=== PATIENT | male | born 1935 | race Caucasian/White ===

== ENCOUNTER 2017-01-29 11:01 | Observation (INO) | payer MEDICARE, OTHER ==
--- NOTE | ~2017-01-29 | OP ---
Record Of Operation [facility] [address] [place]. [address] NAME: GEOFFREY TORRES : 34 STATUS : ADM IN PAT#: [id number] AGE: 81 ADM/REG DATE : 01/29/17 MR#: [id number] REPORT SERV DATE: 01/29/17 DICTATED BY: JUDI OS DATE: 01/29/17 REPORT STATUS : Draft TRANSCRIBED BY: MODL DATE: 01/29/17 DATE OF PROCEDURE: 01/29/2017 ATTENDING DOCTOR: Judi So M.D. PROCEDURE: Cystourethroscopy and placement of artificial urinary sphincter. PREOPERATIVE DIAGNOSIS: Urinary incontinence. POSTOPERATIVE DIAGNOSIS: Urinary incontinence. INDICATIONS: Mr. Torres is an 81-year-old male with history of prostate cancer. He had a remote history of prostatectomy. He has had a PSA recurrence. He had a rising PSA on androgen deprivation therapy. He also has urinary incontinence. He elected for an artificial urinary sphincter. ANESTHESIA: General. COMPLICATIONS: None. IMPLANTS: Artificial urinary sphincter with 4.5 cm cuff. SPECIMENS: None. NARRATIVE: The patient was brought to the operating room, identified by his wristband. General anesthesia was induced, and vancomycin and gentamicin were given for preoperative antibiotics. The patient was then shaved. A 10 minute prep with soap was performed. A chlorhexidine prep was then performed. The patient was then draped in sterile fashion. A 20-Sami Parada was placed into his urethra into his bladder. The balloon was inflated to 10 mL of sterile water. A midline perineal incision was made, this was deepened through dartos fascia to expose the bulbous spongiosis muscle. A Childs retractor was placed. The bulbous spongiosis muscle was divided in its midline, it was in the urethra. A right angle was used to get around the urethra at the junction of the splitting of the corporal bodies. An appropriate sized passage was made behind the urethra, there was no urethral damage. Umbilical tape was used to measure the urethra, the urethra circumference was 5 cm. A 4.5 cm cuff was then chosen. This was placed in position. Next, a 3 cm incision was made approximately 3 fingerbreadths above the pubic symphysis on the right side of the body, this was deepened with electrocautery through Zabrina's fascia down to the level of the rectus fascia. The rectus fascia was incised, the muscle was split. The space of Retzius was entered. A reservoir was placed down into the space of Retzius and the reservoir was inflated with 23 mL of fluid. The fascia was closed with a running 0 Vicryl suture with care taken not to damage the reservoir. Next, the tubing was tunneled from the cuff up into the inguinal incision using the provided guide. Next, a standard pump was placed in a subdartos position on the right side of the scrotum, it was placed in the dependent portion of the scrotum. Next, the tubing was trimmed to appropriate levels. The cuff was attached to the pump using a right angle connector and the pump was connected to the reservoir using Record Of Operation [facility] [address] [place]. [address] NAME: GEOFFREY TORRES : 34 STATUS : ADM IN [facility]#: [id number] AGE: 81 ADM/REG DATE : 01/29/17 MR#: [id number] REPORT SERV DATE: 01/29/17 DICTATED BY: JUDI SO DATE: 01/29/17 REPORT STATUS : Draft TRANSCRIBED BY: JAVIER DATE: 01/29/17 a straight connector. All connections were made after irrigating the tubing to the appropriate fashion. The wounds were irrigated clear with antibiotic impregnated solution. The inguinal incision was closed with a 3-0 Vicryl suture in an interrupted fashion. Skin was closed with 4-0 Monocryl suture. A Dermabond dressing was placed in the perineum. The bulbous spongiosis muscle was closed with a 3-0 Vicryl suture. The dartos fascia was closed with a 3-0 running Vicryl suture. The skin was closed with a running 4-0 Monocryl suture. A Xeroform gauze and a Tegaderm dressing was placed. Cystoscopy was performed. The urethra was uninjured. The urethra coapted well with activation of the sphincter. The bladder was filled. The cuff was activated. There was no urinary leakage. The cuff was deactivated and pressure on the abdomen resulted in spontaneous urination. The cuff was then locked in a deactivated state. A 14-Sami Parada catheter was placed into the bladder. The patient was awoken from anesthesia and transferred to the recovery room in stable condition. There were no complications. JOMEGA/JANAEL Judi So MD / [id number] CC: MD Wilber Izquierdo DO
--- NOTE | ~2017-01-29 | CN ---
Consultation Report [facility] [address] [place]. [address] NAME: GEOFFREY KELLER : 33 STATUS : ADM IN [facility]#: [id number] AGE: 81 ADM/REG DATE : 01/29/17 MR#: [id number] REPORT SERV DATE: 01/30/17 DICTATED BY: DIGNA ARAYA DATE: 01/30/17 REPORT STATUS : Draft TRANSCRIBED BY: MODL DATE: 01/30/17 INFECTIOUS DISEASE CONSULT DATE OF CONSULTATION: REASON FOR REFERRAL: Evaluation and treatment of possible C. diff in the past. HISTORY OF PRESENT ILLNESS: The patient is an 81-year-old male. He has a history of atrial fibrillation. He is on chronic anticoagulation with Eliquis. He was diagnosed many years ago with prostate cancer and had a prostatectomy. Recently, he has had a rise in his PSA and also development of urinary incontinence. He was admitted yesterday by Dr. So of Urology for construction of an artificial urinary sphincter. He received perioperative Ancef x2 doses. 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 The last episode of C. diff was 2 years ago and he has been on no antibiotics since then. He has had no diarrhea recently. He currently feels well. PAST MEDICAL HISTORY: Otherwise unremarkable. MEDICATIONS: As mentioned above, Ancef. ALLERGIES: HE HAS NO KNOWN ANTIMICROBIAL ALLERGIES. 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 He lived for many years in the [place], moved here 5 months ago to be close to his son. He smoked many years ago but not recently. No history of alcohol or substance abuse. FAMILY HISTORY: Noncontributory. PHYSICAL EXAMINATION: GENERAL: Well-appearing, elderly, male, in no acute distress. He is alert and oriented x3. VITAL SIGNS: His temperature is 97.8 at present, pulse 62, respirations 16, blood pressure 101/52, weight 81 kg. HEENT: Sclerae clear. No oral lesions. NECK: Supple. LUNGS: Clear. HEART: Irregular. ABDOMEN: Soft, nontender. Positive bowel sounds. EXTREMITIES: Without clubbing, cyanosis, or edema. LABORATORY DATA: White blood cell count 5.9, hematocrit 31, platelets 165. BUN and creatinine are 17 and 0.94. Consultation Report [facility] [address] [address] NAME: GEOFFREY KELLER : 34 STATUS : ADM IN PAT#: [id number] AGE: 81 ADM/REG DATE : 01/29/17 MR#: [id number] REPORT SERV DATE: 01/30/17 DICTATED BY: DIGNA ARAYA DATE: 01/30/17 REPORT STATUS : Draft TRANSCRIBED BY: JAVIER DATE: 01/30/17 IMPRESSION: History of Clostridium difficile colitis but long enough that he should not be colonized at present and I do not think he is at risk for it now. RECOMMENDATIONS: 1. No Clostridium difficile treatment recommended at this time. 2. Reasonable to take probiotics for the next two weeks. He will obtain those at his pharmacy. 3. If he develops any sort of diarrhea or questionable abdominal symptoms, I have given him my card and he will call me immediately and we will follow him at that time. I appreciate very much your consulting on this patient. HOLLAND Digna Araya M.D. / [id number] CC: MD Wilber Izquierdo DO
[~2017-01-29 11:01] MED LIST: ASAB PO; CLARIT10 PO; ELIQUIS 5 MG TAB5 MG PO; FISH-EPA1000 MG PO; FLECAINIDE50 MG PO; FLONASE NAS; LOFIBRA134 MG PO; LUPRON DEPOT3.75 MG; LUPRON DEPOT7.5 MG IM; MULTIVIT/MIN PO; SINGULAIR1 PO; ZOCOR20 PO; [UNRECOGNIZED DRUG - REMARK]
[2017-01-30 05:33] LABS: BASOPHILS 0.2 %; BASOPHILS ABSOLUTE 0.01 10/3/uL (0.0-0.16); EOSINOPHILS 0 %; HEMOGLOBIN 10.9 g/dL (13.6-17.8); IMMATURE GRANULOCYTES 0.2 %; IMMATURE GRANULOCYTES ABSOLUTE 0.01 10/3/uL (0.0-0.11); LYMPHOCYTES 13.2 %; LYMPHOCYTES ABSOLUTE 0.77 10/3/uL (0.67-4.30); MANUAL DIFF NO %; MEAN CORPUS HGB CONC 35.2 g/dL (32.0-36.0); MEAN CORPUSCULAR HEMOGLOB 33.3 pg (26.0-34.0); MEAN CORPUSCULAR VOLUME 94.8 fL (80-100); MEAN PLATELET VOLUME 9.7 fL (9.2-13.0); MONOCYTES 11.1 %; MONOCYTES ABSOLUTE 0.65 10/3/uL (0.21-1.20); NEUTROPHILS 75.3 %; NEUTROPHILS ABSOLUTE 4.41 10/3/uL (2.02-8.40); PLATELET COUNT 165 10/3/uL (150-400); RBC DISTRIBUTION WIDTH 13.2 % (12.0-16.0); RED CELL COUNT 3.27 10/6/uL (4.7-6.1); WHITE BLOOD CELLS 5.9 10/3/uL (4.5-10.5)
[2017-01-30 05:47] LABS: BUN (BLOOD UREA NITROGEN) 17 MG/DL (6-23); CALCIUM, SERUM 8.3 MG/DL (8.5-10.4); CHLORIDE, SERUM 105 MMOL/L (96-112); CO2 (CARBON DIOXIDE) 27 MMOL/L (24-34); CREATININE 0.94 MG/DL (0.70-1.30); GFR AFRICAN AMERICAN 87 ML/MIN (>=60); GFR NON AFRICAN AMERICAN 75 ML/MIN (>=60); SODIUM, SERUM 141 MMOL/L (135-148)
[2017-01-30 05:57] LABS: GLUCOSE, SERUM 130 MG/DL (60-99)
[2017-01-30] MEDS ORDERED: DSS PO (11:46)
[2017-01-30] MEDS ORDERED: K500 PO (11:47)
[2017-01-30] MEDS ORDERED: PCET PO (11:47)
[2017-03-17] MEDS ORDERED: JANTOVEN5 MG (14:44)
[2017-03-17] MEDS ORDERED: ZOCOR40 PO (14:57)
[2017-03-17] MEDS ORDERED: FLONASE NAS (14:57)
[2017-03-17] MEDS ORDERED: ASTELIN NAS (14:57)
[2017-03-17] MEDS ORDERED: EFFEXOR100 MG PO (14:58)
[2017-03-17] MEDS ORDERED: XYZAL5 MG PO (14:59)
[2017-03-17] MEDS ORDERED: ATRONASAL3 NAS (14:59)
== END 2017-01-30 12:43 | disposition home or self-care (01) ==
LOC: SDC 11:01 → 4SO 17:25
PROVIDERS: Urology
PROC: 0THD8LZ Insertion of Artificial Sphincter into Urethra, Via Natural or Artificial Opening Endoscopic (ICD-10-PCS; principal; 2017-01-29 12:45)
DX: R32 Unspecified urinary incontinence (principal); I48.91 Unspecified atrial fibrillation; I10 Essential (primary) hypertension; Z79.01 Long term (current) use of anticoagulants; Z98.890 Other specified postprocedural states; Z87.891 Personal history of nicotine dependence
CPT/HCPCS: 80048; 81001; 85014; 85018; 85025; 96374; 96376; A9270-GY; C1815; G0378; J0690; J1580; J2405; J2710; J3010; J3370

== ENCOUNTER 2017-03-18 05:51 | Observation (INO) | payer MEDICARE, OTHER ==
[~2017-03-18 05:51] MED LIST changes: +ASTELIN NAS; +ATRONASAL3 NAS; +DSS PO; +EFFEXOR100 MG PO; +JANTOVEN5 MG; +K500 PO; +PCET PO; +XYZAL5 MG PO; +ZOCOR40 PO
[2017-03-18 06:36] LABS: BASOPHILS 0.2 %; BASOPHILS ABSOLUTE 0.01 10/3/uL (0.0-0.16); EOSINOPHILS 0.2 %; EOSINOPHILS ABSOLUTE 0.01 10/3/uL (0.0-0.53); HEMOGLOBIN 12.6 g/dL (13.6-17.8); LYMPHOCYTES ABSOLUTE 0.93 10/3/uL (0.67-4.30); MEAN CORPUS HGB CONC 34.4 g/dL (32.0-36.0); MEAN CORPUSCULAR HEMOGLOB 32.4 pg (26.0-34.0); MEAN CORPUSCULAR VOLUME 94.1 fL (80-100); MEAN PLATELET VOLUME 9.8 fL (9.2-13.0); MONOCYTES 10.4 %; MONOCYTES ABSOLUTE 0.46 10/3/uL (0.21-1.20); NEUTROPHILS 68.2 %; NEUTROPHILS ABSOLUTE 3.01 10/3/uL (2.02-8.40); PLATELET COUNT 195 10/3/uL (150-400); RED CELL COUNT 3.89 10/6/uL (4.7-6.1); WHITE BLOOD CELLS 4.4 10/3/uL (4.5-10.5)
[2017-03-18 06:37] LABS: HEMATOCRIT 36.6 % (40.0-51.0); MANUAL DIFF NO %
[2017-03-18 07:03] LABS: BUN (BLOOD UREA NITROGEN) 14 MG/DL (6-23); CALCIUM, SERUM 9.6 MG/DL (8.5-10.4); CHLORIDE, SERUM 105 MMOL/L (96-112); CHOL/HDL RATIO(NOT ORDER) 1.9 (0-5); CHOLESTEROL 148 MG/DL (< 200); CO2 (CARBON DIOXIDE) 28 MMOL/L (24-34); CREATININE 1.01 MG/DL (0.70-1.30); GFR AFRICAN AMERICAN 80 ML/MIN (>=60); GFR NON AFRICAN AMERICAN 69 ML/MIN (>=60); GLUCOSE, SERUM 97 MG/DL (60-99); HDL CHOLESTEROL 76 MG/DL (> 39); LDL CHOLESTEROL 62 MG/DL (< 130); NON-HDL CHOLESTEROL 72 MG/DL (< 160); POTASSIUM, SERUM 3.9 MMOL/L (3.5-5.3); SODIUM, SERUM 141 MMOL/L (135-148); TRIGLYCERIDE 53 MG/DL (< 150)
[2017-03-18 14:46] LABS: CK-MB 1.2 NG/ML; CPK 44 U/L (0-200)
[2017-03-19 05:25] LABS: HEMATOCRIT 36.8 % (40.0-51.0); HEMOGLOBIN 12.8 g/dL (13.6-17.8)
[2017-03-19 05:38] LABS: INTERNATIONAL NORMAL RATI 1.1 UNITS (-); PROTIME (NOT ORD) 14.1 SEC (12.0-14.5)
[2017-03-19 05:58] LABS: BUN (BLOOD UREA NITROGEN) 14 MG/DL (6-23); CALCIUM, SERUM 9.3 MG/DL (8.5-10.4); CHLORIDE, SERUM 107 MMOL/L (96-112); CK-MB 61.3 NG/ML; CKMB INDEX (NOT ORD) 13.4; CO2 (CARBON DIOXIDE) 25 MMOL/L (24-34); CPK 458 U/L (0-200); CREATININE 0.92 MG/DL (0.70-1.30); GFR AFRICAN AMERICAN 89 ML/MIN (>=60); GFR NON AFRICAN AMERICAN 77 ML/MIN (>=60); GLUCOSE, SERUM 108 MG/DL (60-99); POTASSIUM, SERUM 3.9 MMOL/L (3.5-5.3); SODIUM, SERUM 141 MMOL/L (135-148)
[2017-03-20 04:32] LABS: INTERNATIONAL NORMAL RATI 1.1 UNITS (-)
[2017-03-20] MEDS ORDERED: PLAVIX PO (08:42)
[2017-03-20] MEDS ORDERED: TOPXL25 PO (08:42)
[2017-03-20] MEDS ORDERED: LIPITOR40 PO (08:43)
[2017-03-20] MEDS ORDERED: NITROSTAT0.4 MG SL (08:45)
[2017-03-20] MEDS ORDERED: ASAB PO (08:46)
== END 2017-03-20 12:08 | disposition home or self-care (01) ==
LOC: CORLMH 05:51 → SSU1 06:11 → 5NO 03-19 16:04
PROVIDERS: Internal Medicine Cardiovascular Disease
DX: I25.10 Atherosclerotic heart disease of native coronary artery without angina pectoris (principal); I48.0 Paroxysmal atrial fibrillation; E78.2 Mixed hyperlipidemia; I50.20 Unspecified systolic (congestive) heart failure; Z79.01 Long term (current) use of anticoagulants; Z83.3 Family history of diabetes mellitus; Z87.891 Personal history of nicotine dependence; Z79.899 Other long term (current) drug therapy; Z85.46 Personal history of malignant neoplasm of prostate; Z98.890 Other specified postprocedural states; Z98.41 Cataract extraction status, right eye; Z98.42 Cataract extraction status, left eye
CPT/HCPCS: 80048; 80061; 82550; 82553; 84484; 85014; 85018; 85025; 85347; 85610; 93005; 93458; 99152; 99153; A9270-GY; C1725; C1769; C1874; C1887; C1894; C9600; C9601; G0378; J2250; J2370; J3010; Q9967